=== PATIENT | female | born 1930 | race Caucasian/White ===

== ENCOUNTER 2016-08-16 11:27 | Emergency (ER) | payer MEDICARE, BC ==
[~2016-08-16 11:27] MED LIST: ADALAT CC PO; ALPRAZOLAM PO; ALPRAZOLAM1 MG PO; ASPIRIN PO; GLUCOPHAGE XR500 MG PO; GLYBURIDE MICRON3 MG PO; JANUVIA50 MG PO; LEVAQUIN PO; LISINOPRIL-HCTZ1 T14 PO; LOPRESSOR PO; MAG-OX 400400 MG PO; PROTONIX PO; SIMVASTATIN40 MG PO; ZESTORETIC 10/11 TAB PO; ZOCOR PO; ZOFRAN PO
== END 2016-08-16 17:04 | disposition home or self-care (01) ==
LOC: CFTX 11:27
DX: B02.9 Zoster without complications (principal); E11.9 Type 2 diabetes mellitus without complications; I10 Essential (primary) hypertension; Z90.49 Acquired absence of other specified parts of digestive tract; Z98.890 Other specified postprocedural states
CPT/HCPCS: 99282

== ENCOUNTER 2016-09-05 19:08 | Emergency (ER) | payer MEDICARE, BC | END 2016-09-05 20:25 | disposition home or self-care (01) | LOC: CED 19:08 | DX: B02.29 Other postherpetic nervous system involvement (principal); E11.9 Type 2 diabetes mellitus without complications; I10 Essential (primary) hypertension; Z88.8 Allergy status to other drugs, medicaments and biological substances | CPT/HCPCS: 99282 ==